=== PATIENT | male | born 1985 | race Caucasian/White ===

== ENCOUNTER 2018-08-14 16:46 | Emergency (ER) | payer OTHER ==
[~2018-08-14] VITALS: Ht 182.9 cm; Wt 106.6 kg
[2018-08-14] MEDS ORDERED: RABIES VACCINE HUMAN 2.5 INTERNATIONAL UNITS/ML VIAL (90675) IM ONE (17:45)
[2018-08-14 18:03] VITALS: BP 118/72
== END 2018-08-14 18:33 | disposition home or self-care (01) ==
LOC: M ED 16:46
DX: Z23 Encounter for immunization (principal); Z20.3 Contact with and (suspected) exposure to rabies; Z72.0 Tobacco use; Z88.0 Allergy status to penicillin